=== PATIENT | female | born 1975 | race African-American/Black ===

== ENCOUNTER 2022-10-13 19:14 | Emergency (ER) | payer SELFPAY ==
[~2022-10-13] VITALS: Ht 167.6 cm; Wt 136.0 kg
[2022-10-13] MEDS ORDERED: METFORMIN HCL500 M1 PO (19:44)
[2022-10-13 20:58] LABS: BASO% 0.4 % (0-3); EOS% 1.6 % (0-8); HEMATOCRIT 39.6 % (37.0-47.0); IMMATURE GRANULOCYTES 0.2 % (0.0-5.0); LYMPH% 45.9 % (15-41); MEAN CELL VOLUME 80.2 fL CALC (80.0-100.0); MEAN CORPUSCULAR HGB 26.3 pG CALC (26.0-32.0); MEAN CORPUSCULAR HGB CONC 32.8 g/dL CAL (32.0-36.0); MONO% 6.6 % (2-13); NEUT# 2.21 thou/uL (2.00-7.15); NEUT% 45.3 % (42-76); RED BLOOD COUNT 4.94 mill/uL (4.20-5.60); RED CELL DISTRI WIDTH 13.4 % (11.5-15.5)
[2022-10-13 21:11] LABS: ALBUMIN 3.6 g/dL (3.2-5.0); ALKALINE PHOSPHATASE 79 u/l (38-126); ANION GAP 7 (6-22 (CALC)); BILIRUBIN, TOTAL 0.3 mg/dL (0.02-1.3); BUN 5 mg/dL (7-17); BUN/CREATININE RATIO 9 (12-20 (CALC)); CARBON DIOXIDE 31 mmol/l (22-30); CHLORIDE 102 mmol/l (95-108); CREATININE 0.6 mg/dL (0.5-1.0); GFR FOR AFR.AMER. > 60 ML/MIN (>=60 (CALC)); GFR OTHER RACES > 60 ML/MIN (>=60 (CALC)); POTASSIUM 3.6 mmol/l (3.5-5.1); SGOT/AST 18 u/l (14-36); SODIUM 137 mmol/l (137-146)
[2022-10-13 21:12] LABS: D-DIMER 0.6 mg/L (0.19-0.60)
[2022-10-13 21:15] LABS: ACT PARTIAL THROMBO TIME 23.6 SECONDS (20.0-32.5)
[2022-10-13] MEDS ORDERED: TIZANIDINE2 MG PO (22:37)
[2022-10-13 22:40] VITALS: BP 171/92
[2022-10-13 23:26] LABS: URINE BILIRUBIN - DIPSTICK NEGATIVE (NEGATIVE); URINE BLOOD DIPSTICK SMALL (NEGATIVE); URINE CLARITY CLOUDY; URINE COLOR YELLOW; URINE GLUCOSE - DIPSTICK 500 mg/dL (NEGATIVE); URINE KETONE NEGATIVE (NEGATIVE); URINE LEUK ESTERASE NEGATIVE (Negative); URINE NITRITE - DIPSTICK POSITIVE (Negative); URINE PH 5.5 (4.5-8.0); URINE PROTEIN - DIPSTICK 30 mg/dL (NEG-TRACE); URINE SPECIFIC GRAVITY >=1.030; URINE UROBILINOGEN - DIPSTICK 0.2 E.U./dL (0.2)
[2022-10-13 23:46] LABS: URINE BACTERIA MANY hpf; URINE MUCUS FEW hpf (NONE-FEW); URINE SQUAMOUS EPITHELIAL CELL MANY EPI/hpf (0-FEW)
== END 2022-10-14 00:10 | disposition home or self-care (01) | DRG 605 ==
LOC: ED 19:14
PROVIDERS: Emergency Medicine
DX: S20.212A Contusion of left front wall of thorax, initial encounter (principal); I10 Essential (primary) hypertension; E11.9 Type 2 diabetes mellitus without complications; V47.5XXA Car driver injured in collision with fixed or stationary object in traffic accident, initial encounter; Z79.84 Long term (current) use of oral hypoglycemic drugs

== ENCOUNTER 2022-11-09 19:04 | Emergency (ER) | payer SELFPAY ==
[~2022-11-09] VITALS: Ht 167.6 cm; Wt 117.0 kg
[~2022-11-09 19:04] MED LIST: METFORMIN HCL500 M1 PO; TIZANIDINE2 MG PO
[2022-11-09 19:31] VITALS: BP 177/111
[2022-11-09 20:08] VITALS: BP 223/111
[2022-11-09 20:08] LABS: BASO% 0.4 % (0-3); EOS% 1.1 % (0-8); HEMATOCRIT 38.7 % (37.0-47.0); HEMOGLOBIN 12.7 g/dl (12.0-16.0); IMMATURE GRANULOCYTES 0.2 % (0.0-5.0); LYMPH% 41.8 % (15-41); MEAN CELL VOLUME 79.6 fL CALC (80.0-100.0); MEAN CORPUSCULAR HGB 26.1 pG CALC (26.0-32.0); MEAN CORPUSCULAR HGB CONC 32.8 g/dL CAL (32.0-36.0); MONO% 6.7 % (2-13); NEUT# 2.62 thou/uL (2.00-7.15); NEUT% 49.8 % (42-76); RED BLOOD COUNT 4.86 mill/uL (4.20-5.60); RED CELL DISTRI WIDTH 13.7 % (11.5-15.5)
[2022-11-09 20:20] LABS: ALBUMIN 3.2 g/dL (3.2-5.0); ALKALINE PHOSPHATASE 77 u/l (38-126); ANION GAP 8 (6-22 (CALC)); BILIRUBIN, TOTAL 0.3 mg/dL (0.02-1.3); BUN 8 mg/dL (7-17); BUN/CREATININE RATIO 11 (12-20 (CALC)); CARBON DIOXIDE 28 mmol/l (22-30); CHLORIDE 102 mmol/l (95-108); CREATININE 0.7 mg/dL (0.5-1.0); GFR FOR AFR.AMER. > 60 ML/MIN (>=60 (CALC)); GFR OTHER RACES > 60 ML/MIN (>=60 (CALC)); POTASSIUM 3.3 mmol/l (3.5-5.1); SGOT/AST 20 u/l (14-36); SODIUM 134 mmol/l (137-146); TOTAL PROTEIN 6.6 g/dL (6.3-8.2)
[2022-11-09 21:33] VITALS: BP 194/99
[2022-11-09] MEDS ORDERED: PROAIR DIG108 MCG/AC IN (22:31)
[2022-11-09] MEDS ORDERED: LISINOPRIL10 MG PO (22:31)
[2022-11-09] MEDS ORDERED: METFORMIN500 M2 PO (22:31)
[2022-11-09] MEDS ORDERED: ALBUTEROL SUL0.083 % IN (22:31)
[2022-11-09 22:37] VITALS: BP 194/99
== END 2022-11-09 22:47 | disposition home or self-care (01) | DRG 639 ==
LOC: ED 19:04
PROVIDERS: Emergency Medicine
DX: E11.65 Type 2 diabetes mellitus with hyperglycemia (principal); I10 Essential (primary) hypertension; J45.909 Unspecified asthma, uncomplicated; H61.21 Impacted cerumen, right ear; T38.3X6A Underdosing of insulin and oral hypoglycemic [antidiabetic] drugs, initial encounter; Z91.128 Patient's intentional underdosing of medication regimen for other reason; Z79.84 Long term (current) use of oral hypoglycemic drugs